=== PATIENT | male | born 1975 | race African-American/Black ===

== ENCOUNTER 2016-08-05 04:36 | Emergency (ER) | payer SELFPAY ==
[~2016-08-05] VITALS: Ht 172.7 cm; Wt 67.0 kg
[2016-08-05 04:39] VITALS: BP 145/83; PULSE 57; RESP 16; TEMP 98.7; O2SAT 100
[2016-08-05 05:16] VITALS: RESP 18; O2SAT 99
[2016-08-05] MEDS ORDERED: ONDANSETRON HCL 4 MG/2 ML VIAL ONE (05:29)
[2016-08-05 05:30] LABS: AUTOMATED NEUTROPHIL # 4.9 TH/MM3 (1.8-7.7); BASOPHIL % 0.6 % (0.0-2.0); EOSINOPHIL # 0.1 TH/MM3 (0-0.4); EOSINOPHIL % 1.4 % (0.0-4.0); HEMATOCRIT 38.4 % (39.0-51.0); HEMO FLAGS DIFF FINAL; LYMPH % 25.4 % (9.0-44.0); MEAN CELL VOLUME 93.5 FL (80.0-100.0); MEAN CORPUSCULAR HEMOGLOBIN 31.9 PG (27.0-34.0); MEAN CORPUSCULAR HGB CONC 34.1 % (32.0-36.0); MONO % 10.4 % (0.0-8.0); NEUT % 62.2 % (16.0-70.0); PLATELET COUNT 257 TH/MM3 (150-450); WHITE BLOOD COUNT 7.9 TH/MM3 (4.0-11.0)
[2016-08-05] MEDS ORDERED: ONDANSETRON HCL 4 MG/2 ML VIAL IV PUSH ONE (05:30)
[2016-08-05] MEDS ORDERED: MORPHINE SULFATE 4 MG/ML INJ IV PUSH ONE (05:30)
[2016-08-05 05:44] LABS: ANION GAP 9 MEQ/L (5-15); AST (GOT) 20 U/L (15-37); BICARBONATE 27.3 MEQ/L (21.0-32.0); BLOOD UREA NITROGEN 11 MG/DL (7-18); CHLORIDE 104 MEQ/L (98-107); GLOMERULAR FILTRATION RATE 115 ML/MIN (>89); POTASSIUM 3.9 MEQ/L (3.5-5.1); SODIUM (NA) 140 MEQ/L (136-145)
[2016-08-05 05:47] LABS: ALKALINE PHOSPHATASE 65 U/L (45-117); ALT (GPT) 20 U/L (12-78); TOTAL BILIRUBIN ADULT 0.4 MG/DL (0.2-1.0)
[2016-08-05] MEDS ORDERED: HYDROmorphone HCL PF 1 MG/ML VIAL IV PUSH ONE ×2 (06:00→06:45)
[2016-08-05] MEDS ORDERED: IOHEXOL 350 MG/ML 10 ML VIAL (for RAD DIAG) IV ONE (06:33)
--- NOTE | 2016-08-05 06:44 | RADRPT ---
EXAM DATE/TIME: 08/05/2016 06:16 [place] COMPARISON: No previous studies available for comparison. INDICATIONS : Swelling in scrotum. Evaluate hernia or abscess. IV CONTRAST: 100 cc Omnipaque 350 (iohexol) IV ORAL CONTRAST: No oral contrast ingested. RADIATION DOSE: 4.83 CTDIvol (mGy) MEDICAL HISTORY : None SURGICAL HISTORY : None. ENCOUNTER: Initial ACUITY: 1 week PAIN SCALE: 10/10 LOCATION: scrotum TECHNIQUE: Volumetric scanning of the abdomen and pelvis was performed. Using automated exposure control and ad justment of the mA and/or kV according to patient size, radiation dose was kept as low as reasonably achievable to obtain optimal diagnostic quality images. FINDINGS: LOWER LUNGS: The visualized lower lungs are clear. LIVER: There is a 1 cm lesion in the anterior midportion of the liver which may be a hemangioma. Definitive characterization with multiphase MRI would be suggested when clinically feasible. There is no evidenc e of biliary ductal dilatation. There is mild probable steatosis adjacent to the falciform ligament. SPLEEN: Normal size without lesion. PANCREAS: Within normal limits. KIDNEYS: Normal in size and shape. There is no mass, stone or hydronephrosis. ADRENAL GLANDS: Within normal limits. VASCULAR: There is no aortic aneurysm. BOWEL/MESENTERY: The stomach, small bowel, and colon demonstrate no acute abnormality. There is no free intraperitone al air or fluid. ABDOMINAL WALL: Within normal limits. RETROPERITONEUM: There is no lymphadenopathy. BLADDER: No wall thickening or mass. REPRODUCTIVE: Within normal limits. INGUINAL: There is a large right inguinal hernia containing the cecum. MUSCULOSKELETAL: Within normal limits for patient age. CONCLUSION: Large right inguinal hernia contains a portion of the cecum. Slightly greater than 1 cm nonspecific liver lesion. Further characterization with multiphase contras shira liver MRI suggested on an elective basis. Tye Gardner MD on August 05, 2016 at 6:39 Board Certified Radiologist. This report was verified electronically.
[2016-08-05 06:46] VITALS: BP 113/68; PULSE 91; RESP 18; O2SAT 100
[2016-08-05] MEDS ORDERED: SODIUM CHLOR 0.9% 1000 ML INJ 1,000 ML IV ONE ×2 (07:00)
--- NOTE | 2016-08-05 07:16 | PD ---
HPI Chief Complaint: Abdominal Pain Time Seen by Provider: 04:40 Travel History International Travel<30 days: No Contact w/Intl Traveler<30days: No Traveled to known affect area: No History of Present Illness HPI Patient 40-year-old male presents emergency primary for evaluation of abdominal pain and right groin swelling since lifting of heavy object yesterday. Patient states he is always had some swelling of his right scrotum but he got significant worse yesterday. 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 Patient states since then the swelling got worse and slowly the pain has gotten worse as well. Denies any fever states he had one episode of nausea productive of yellow emesis. Denies any blood in the emesis blood in the stool diarrhea constipation. Patient denies any dysuria. PFSH Past Medical History Medical History: Denies Significant Hx Past Surgical History Other Surgery: Yes (REMOVAL OF NASAL POLYPS) Social History Alcohol Use: Yes (OCC) Tobacco Use: Yes Substance Use: Yes (MARIJUANA) Allergies-Medications (Allergen,Severity, Reaction): Coded Allergies: No Known Allergies (Verified , 08/05/16) Reported Meds & Prescriptions Reported Meds & Active Scripts Active No Active Prescriptions or Reported Medications Review of Systems Except as stated in HPI: all other systems reviewed are Neg Physical Exam Narrative GENERAL: Well-developed well-nourished no apparent distress SKIN: Warm and dry. HEAD: Atraumatic. Normocephalic. EYES: Pupils equal and round. No scleral icterus. No injection or drainage. ENT: No nasal bleeding or discharge. Mucous membranes pink and moist. NECK: Trachea midline. No JVD. CARDIOVASCULAR: Regular rate and rhythm. No murmur appreciated. RESPIRATORY: No accessory muscle use. Clear to auscultation. Breath sounds equal bilaterally. GASTROINTESTINAL: Abdomen soft, non-tender, nondistended. Hepatic and splenic margins not palpable. Genitourinary: Penis circumcised, there is significant swelling and tenderness of the right scrotum. There is no overlying cellulitis or abscess. MUSCULOSKELETAL: No obvious deformities. No clubbing. No cyanosis. No edema. NEUROLOGICAL: Awake and alert. No obvious cranial nerve deficits. Motor grossly within normal limits. Normal speech. PSYCHIATRIC: Appropriate mood and affect; insight and judgment normal. Data Data Last Documented VS Vital Signs Date Time Temp Pulse Resp B/P Pulse Ox O2 Delivery O2 Flow Rate FiO2 3/4/17 06:46 91 18 113/68 100 Room Air 08/05/16 04:39 98.7 Orders Complete Blood Count With Diff (08/05/16 04:43) Comprehensive Metabolic Panel (08/05/16 04:43) Iv Access Insert/Monitor (08/05/16 04:43) Ecg Monitoring (08/05/16 04:43) Oximetry (08/05/16 04:43) Lipase (08/05/16 04:51) Morphine Inj (Morphine Inj) (08/05/16 05:30) Ondansetron Inj (Zofran Inj) (08/05/16 05:29) Ondansetron Inj (Zofran Inj) (08/05/16 05:30) Lactic Acid (08/05/16 05:47) Hydromorphone Pf Inj (Dilaudid Pf Inj) (08/05/16 06:00) Ct Abd/Pel W Iv Contrast(Rout) (08/05/16 ) Iohexol 350 Inj (Omnipaque 350 Inj) (08/05/16 06:33) Hydromorphone Pf Inj (Dilaudid Pf Inj) (08/05/16 06:45) Sodium Chlor 0.9% 1000 Ml Inj (Ns 1000 M (08/05/16 07:00) Sodium Chlor 0.9% 1000 Ml Inj (Ns 1000 M (08/05/16 07:00) Mandatory Outpatient Referral (08/05/16 07:40) Labs Laboratory Tests Test 08/05/16 08/05/16 04:51 05:55 White Blood Count 7.9 TH/MM3 Red Blood Count 4.10 MIL/MM3 Hemoglobin 13.1 GM/DL Hematocrit 38.4 % Mean Corpuscular Volume 93.5 FL Mean Corpuscular Hemoglobin 31.9 PG Mean Corpuscular Hemoglobin 34.1 % Concent Red Cell Distribution Width 13.0 % Platelet Count 257 TH/MM3 Mean Platelet Volume 9.1 FL Neutrophils (%) (Auto) 62.2 % Lymphocytes (%) (Auto) 25.4 % Monocytes (%) (Auto) 10.4 % Eosinophils (%) (Auto) 1.4 % Basophils (%) (Auto) 0.6 % Neutrophils # (Auto) 4.9 TH/MM3 Lymphocytes # (Auto) 2.0 TH/MM3 Monocytes # (Auto) 0.8 TH/MM3 Eosinophils # (Auto) 0.1 TH/MM3 Basophils # (Auto) 0.0 TH/MM3 CBC Comment DIFF FINAL Differential Comment Sodium Level 140 MEQ/L Potassium Level 3.9 MEQ/L Chloride Level 104 MEQ/L Carbon Dioxide Level 27.3 MEQ/L Anion Gap 9 MEQ/L Blood Urea Nitrogen 11 MG/DL Creatinine 0.89 MG/DL Estimat Glomerular Filtration 115 ML/MIN Rate Random Glucose 102 MG/DL Calcium Level 9.1 MG/DL Total Bilirubin 0.4 MG/DL Aspartate Amino Transf 20 U/L (AST/SGOT) Alanine Aminotransferase 20 U/L (ALT/SGPT) Alkaline Phosphatase 65 U/L Total Protein 7.5 GM/DL Albumin 3.9 GM/DL Lipase 100 U/L Lactic Acid Level 0.8 mmol/L MDM Medical Decision Making Medical Screen Exam Complete: Yes Emergency Medical Condition: Yes Differential Diagnosis Hernia, strangulated hernia, entrapped hernia, acute abdomen unlikely. Narrative Course Patient roomed in the emergency department, with some effort, 2 mg of Dilaudid plus morphine and significant patient's Ramon Syed and I were able to reduce the patient's hernia. Patient complete relief of his pain after reduce. He is tolerating by mouth and has no complaints. Last 24 hours Impressions Abdomen/Pelvis CT 08/05/16 0000 Signed Impressions: Service Date/Time: Friday, August 05, 2016 06:16 - CONCLUSION: Large right inguinal hernia contains a portion of the cecum. Slightly greater than 1 cm nonspecific liver lesion. Further characterization with multiphase contrasted liver MRI suggested on an elective basis. Tye Gardner MD I have paged Dr. Shi of discussed the patient as he has a large bowel containing hernia and likely to recur. Discussed with the patient importance of following up and he is agreeable. Discussed return to ED criteria. Diagnosis Primary Impression: Direct inguinal hernia Referrals: Boubacar Shi MD Scripts No Active Prescriptions or Reported Meds Disposition: 01 DISCHARGE HOME Condition: Stable Dipak Renteria MD Aug 05, 2016 07:16
== END 2016-08-05 08:49 | disposition home or self-care (01) ==
LOC: NEPE 04:36
DX: K40.90 Unilateral inguinal hernia, without obstruction or gangrene, not specified as recurrent (principal); F12.10 Cannabis abuse, uncomplicated; Z72.0 Tobacco use
CPT/HCPCS: 74177; 80053; 83605; 83690; 85025; 96361; 96374; 96375; 96376; 99284; J1170; J2270; J2405; J7030; Q9967

== ENCOUNTER → 2016-09-06 | Day surgery (SDC) | payer SELFPAY ==
[~2016-09-06] MED LIST: BACT800T5 PO; BUPIVACAINE/EPINEPHRINE 0.25% 50 ML VIAL ONE; CEPH500C PO; HYDR-3533 PO; IBUP800T23 PO; KETOROLAC TROMETHAMINE 30 MG/ML (IVP) VIAL IV PUSH ONE; LACTATED RINGER'S 1000 ML INJ 1,000 ML ONE; MIDAZOLAM HCL 2 MG/2 ML VIAL ONE; ONDANSETRON HCL 4 MG/2 ML VIAL IV PUSH ONE; PROPOFOL 200 MG/20 ML AMP IV ONE; ceFAZolin 2 GM PREMIX 50 ML ONE
--- NOTE | 2016-09-06 17:24 | TN ---
cc: DELFINA SHEPARD M.D. DATE OF SURGERY 09/06/2016 PREOPERATIVE DIAGNOSIS Right inguinal hernia. POSTOPERATIVE DIAGNOSES 1. Large chronic right indirect inguinal hernia. 2. Small spermatic cord lipoma. PROCEDURE Open repair right inguinal hernia with mesh. Excision small spermatic cord lipoma. SURGEON Dr. Delfina Shepard MELTER OPERATOR JIMENA Garcia ANESTHESIA General with laryngeal mask INDICATIONS This is a 41-year-old -[place] gentleman presented to the emergency department with a symptomatic right inguinal hernia. He has had it for many years. It has increased in size. He is desirous of repair. INTRAOPERATIVE FINDINGS Large chronic right indirect inguinal hernia sac with redundant sac excised and discarded. Small spermatic cord lipoma excised and discarded. ESTIMATED BLOOD LOSS Minimal. PROCEDURE DETAILS This procedure was assisted by my FREIGHT CAR REPAIRER. The skill set of the nurse practitioner was medically necessary to provide appropriate assistance in retraction and visualization of important anatomic structures and providing increased efficiency in the operating room. The surgical assistant certified was at the back table providing appropriate instrumentation while the nurse practitioner directly assisting me through the entirety of the case. DESCRIPTION OF PROCEDURE IN DETAIL The patient identified as Mian Pavon, taken to the operating room and placed in the supine position. Sequential compression devices were placed on bilateral lower extremities. Following induction of adequate general anesthesia with a laryngeal mask the right groin was prepped and draped in usual sterile fashion with Betadine. Time-out procedure was performed. Following completion of the time-out procedure to everyone's satisfaction within the room, the right groin proposed incision was made with a marking pen. Local anesthetic was infiltrated the right groin incision carried out with scalpel. Hemostasis was controlled with electrocautery. Dissection continued posteriorly through Boone fascia to the level of the external oblique fascia. More local anesthetic was placed beneath the external oblique fascial fibers and they were opened in their direction using a scalpel and Metzenbaum scissor. Underlying ilioinguinal and iliohypogastric nerves were identified and avoided. Spermatic cord and its contents were from surrounding tissues at the level of the pubic tubercle and isolated with a Linda drain. The anterior cremasteric fibers were divided with electrocautery and a chronic, large, thickened indirect inguinal hernia sac was reduced from surrounding cord structures. This took some time as there was significant scarring of the hernia sac to the surrounding structures, but they were carefully identified and relieved from the sac. The sac was then opened. There were no incarcerated contents in the sac and it was suture-ligated at its base with 2-0 Vicryl suture ligature. Redundant sac was amputated with electrocautery and discarded. Small spermatic cord lipoma was treated in a similar fashion though much more easily and the excess fatty tissue was excised after the base was suture ligated with a 2-0 Vicryl suture ligature. The inguinal floor was examined. There was no evidence of direct hernia or femoral hernia. Inguinal floor was reinforced with a piece of atrium ProLite mesh which was cut from a 3 x 6 inch piece to an appropriate size for the patient's anatomy. The mesh was held in position with interrupted 0 Ethibond sutures placed above and below the pubic tubercle and Donavan's ligament and the shelving edge of the inguinal ligament inferiorly and laterally into the internal oblique fascia superiorly and medially. Tails of the mesh were cut to allow for lateral slit which was placed around the spermatic cord and tacked underneath the external oblique fascia laterally. A single suture was placed to approximate the mesh lateral to the spermatic cord taking care not to strangle it. Wound was irrigated with saline. There was no evidence of bleeding. Remaining local anesthetic was placed within the operative field and the external oblique fascia was closed in a running fashion using the 2-0 Vicryl suture. Care was taken to avoid underlying ilioinguinal and iliohypogastric nerves. Boone fascia was approximated with interrupted 3-0 Vicryl sutures. Skin incisions were approximated with running 4-0 Monocryl subcuticular suture. Dressings were applied with Mastisol and one-half inch brown Steri-Strips, gauze and Tegaderm. The patient tolerated the procedure without apparent complication. Sponge, needle and instrument counts were correct at the end of the case. MD MEHRAN Mcdaniel/ALEJANDRA /3:38 PM /5:02 PM PHILIP
== END | disposition home or self-care (01) ==
LOC: ESDC 12:49
PROVIDERS: ATTEND Surgery Trauma Surgery
DX: K40.90 Unilateral inguinal hernia, without obstruction or gangrene, not specified as recurrent (principal); D17.6 Benign lipomatous neoplasm of spermatic cord
CPT/HCPCS: 00830; 49505; 55520; C1781; J0690; J1885; J2250; J2405; J3010; J7120

== ENCOUNTER 2016-09-15 08:20 | Emergency (ER) | payer SELFPAY ==
[~2016-09-15] VITALS: Ht 175.3 cm; Wt 68.0 kg
[2016-09-15 08:22] VITALS: BP 137/82; PULSE 70; RESP 20; TEMP 97.9; O2SAT 99
[2016-09-15] MEDS ORDERED: HYDROmorphone HCL PF 1 MG/ML VIAL IM ONE (09:45)
[2016-09-15] MEDS ORDERED: HYDROmorphone HCL PF 1 MG/ML VIAL IV PUSH ONE (10:00)
[2016-09-15] MEDS ORDERED: SODIUM CHLOR 0.9% 1000 ML INJ 1,000 ML IV ONE (10:00)
[2016-09-15] MEDS ORDERED: HYDR-3533 PO (10:03)
--- NOTE | 2016-09-15 10:03 | PD ---
HPI Chief Complaint: Pain: Acute or Chronic Time Seen by Provider: 09:30 Travel History International Travel<30 days: No Contact w/Intl Traveler<30days: No Traveled to known affect area: No History of Present Illness HPI This is a 41-year-old male who had an inguinal hernia repair a week and a half ago who presents to the emergency department with 3 days of increasing pain on his right abdomen, intermittent, worse when he stands up or stretches, starting at his inguinal hernia repair site and extending up to his right upper abdomen. Patient denies any fevers or chills. He says his bowels have been normal and he's been urinating normally. He did have one episode of vomiting yesterday but none today. He was supposed to follow-up with Dr. Shi yesterday in clinic but he missed his appointment. He had been taking Lortab but since has run out. 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 [facility] Past Medical History Medical History: Denies Significant Hx Tetanus Vaccination: < 5 Years Influenza Vaccination: No Past Surgical History Abdominal Surgery: Yes (HERNIA REPAIR) Other Surgery: Yes (REMOVAL OF NASAL POLYPS) Social History Alcohol Use: Yes (OCC) Tobacco Use: Yes (5-10 CIGARETTES/DAY) Substance Use: Yes (MARIJUANA) Allergies-Medications (Allergen,Severity, Reaction): Coded Allergies: No Known Allergies (Verified , 08/05/16) Reported Meds & Prescriptions Reported Meds & Active Scripts Active No Active Prescriptions or Reported Medications Review of Systems Except as stated in HPI: all other systems reviewed are Neg Physical Exam Narrative GENERAL:Well appearing, no acute distress SKIN: Well-healing incision over the right inguinal area with no fluctuance or purulent drainage HEAD: Atraumatic. Normocephalic. EYES: Pupils equal and round. No injection or drainage. ENT: Moist mucous membranes NECK: Trachea midline. CARDIOVASCULAR: Regular rate and rhythm. No murmur appreciated. RESPIRATORY: Clear to auscultation. Breath sounds equal bilaterally. GASTROINTESTINAL: Abdomen soft, tender to palpation in the right lower quadrant with no rebound or guarding. MUSCULOSKELETAL: No obvious deformities. NEUROLOGICAL: Awake and alert. No obvious cranial nerve deficits. Moving all extremities. PSYCHIATRIC: Appropriate mood and affect; insight and judgment normal. Data Data Last Documented VS Vital Signs Date Time Temp Pulse Resp B/P Pulse Ox O2 Delivery O2 Flow Rate FiO2 09/15/16 08:22 97.9 70 20 137/82 99 Room Air Orders Hydromorphone Pf Inj (Dilaudid Pf Inj) (09/15/16 09:45) Complete Blood Count With Diff (09/15/16 09:46) Comprehensive Metabolic Panel (09/15/16 09:46) ^ Insert Iv (09/15/16 09:46) Ct Abd/Pel W Iv Contrast(Rout) (09/15/16 ) Hydromorphone Pf Inj (Dilaudid Pf Inj) (09/15/16 10:00) Sodium Chlor 0.9% 1000 Ml Inj (Ns 1000 M (09/15/16 10:00) MDM Medical Decision Making Medical Screen Exam Complete: Yes Emergency Medical Condition: Yes Interpretation(s) Afebrile, no tachycardia, normotensive Differential Diagnosis Postoperative pain, bowel obstruction, bowel perforation, abscess Narrative Course This is a 41-year-old male who presents to the emergency department with discomfort in the right side associated with a right inguinal hernia repair that was performed a week and a half ago. Patient recently returned to work and has been on his feet more. I suspect this is normal postoperative pain. He is very well-appearing on exam, well-hydrated, with no bowel or bladder dysfunction and a fairly benign exam. I spoke to Dr. Shi who agreed to follow-up with the patient on Sunday in clinic. Patient will return if he develops fevers, increasing or worsening pain, or vomiting. Patient was discharged with a short course of Lortab and was instructed to perform light duty at work until he improves. Diagnosis Primary Impression: Postoperative pain Patient Instructions: General Instructions, Narcotic given in the ED Departure Forms: Work Release Special Instructions: Please have Mr. Pavon perform light duty at work and spend minimal time on his feet until he follows up with his surgeon on Sunday. Additional Instructions: If you develop severe or worsening abdominal pain, fever>100.4, persistent vomiting or inability to eat or drink return to the emergency department immediately. Follow up with Dr. Shi as scheduled. Med/Other Pt SpecificInfo: Prescription(s) given Scripts Hydrocodone-Acetaminophen (Lortab)5-325 Mg Tab1-2 Tab PO Q6H PRN (PAIN) #15 TAB Ref 0 Prov:Elana Jordan MD 09/15/16 Disposition: 01 DISCHARGE HOME Condition: Stable Elana Jordan MD Sep 15, 2016 10:03
[2016-09-15 10:23] VITALS: RESP 17
[2016-09-15 10:39] VITALS: BP 122/80; TEMP 97.8
== END 2016-09-15 10:39 | disposition home or self-care (01) ==
LOC: NEPD 08:20
DX: G89.18 Other acute postprocedural pain (principal); K40.90 Unilateral inguinal hernia, without obstruction or gangrene, not specified as recurrent; F17.210 Nicotine dependence, cigarettes, uncomplicated; R11.10 Vomiting, unspecified
CPT/HCPCS: 96361; 96374; 99284; J1170; J7030

== ENCOUNTER 2016-10-27 20:38 | Emergency (ER) | payer SELFPAY ==
[~2016-10-27 20:38] MED LIST changes: -BACT800T5 PO; -BUPIVACAINE/EPINEPHRINE 0.25% 50 ML VIAL ONE; -CEPH500C PO; -IBUP800T23 PO; -KETOROLAC TROMETHAMINE 30 MG/ML (IVP) VIAL IV PUSH ONE; -LACTATED RINGER'S 1000 ML INJ 1,000 ML ONE; -MIDAZOLAM HCL 2 MG/2 ML VIAL ONE; -ONDANSETRON HCL 4 MG/2 ML VIAL IV PUSH ONE; -PROPOFOL 200 MG/20 ML AMP IV ONE; -ceFAZolin 2 GM PREMIX 50 ML ONE
[2016-10-27 20:39] VITALS: BP 109/67; PULSE 92; RESP 15; TEMP 98.8; O2SAT 99
[2016-10-27] MEDS ORDERED: BACT800T5 PO (21:40)
[2016-10-27] MEDS ORDERED: IBUP800T23 PO (21:40)
[2016-10-27] MEDS ORDERED: CEPH500C PO (21:40)
--- NOTE | 2016-10-27 21:41 | PD ---
HPI Chief Complaint: Skin Problem Time Seen by Provider: 21:36 Travel History International Travel<30 days: No Contact w/Intl Traveler<30days: No Traveled to known affect area: No History of Present Illness HPI 41-year-old male presents to the emergency department for evaluation of abscess to his right dorsal forearm has been ongoing for 1 week. 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 He denies any history of IV drug use. He denies any fevers or chills. He has no chronic medical problems and takes no prescribed medications. Patient denies history of abscesses. He has no other complaints at this time. No abdominal pain. No chest pain. No shortness of breath. No nausea or vomiting. PFSH Past Medical History Medical History: Denies Significant Hx Past Surgical History Abdominal Surgery: Yes (HERNIA REPAIR) Other Surgery: Yes (REMOVAL OF NASAL POLYPS) Social History Alcohol Use: Yes (OCC) Tobacco Use: Yes (5-10 CIGARETTES/DAY) Substance Use: Yes (MARIJUANA) Allergies-Medications (Allergen,Severity, Reaction): Coded Allergies: No Known Allergies (Verified , 10/27/16) Reported Meds & Prescriptions Reported Meds & Active Scripts Active Ibuprofen 800 Mg Tab 800 Mg PO TID PRN Cephalexin 500 Mg Cap 500 Mg PO Q6H 10 Days Bactrim DS (Sulfamethoxazole-Trimethoprim) 800-160 Mg Tab 1 Tab PO BID Review of Systems Except as stated in HPI: all other systems reviewed are Neg Physical Exam Narrative GENERAL: Well-nourished, well-developed male patient, ambulatory. Afebrile. SKIN: Focused skin assessment warm/dry. Patient has an approximately 2 cm raised fluctuant abscess to the right dorsal forearm. No current drainage. No surrounding erythema. HEAD: Normocephalic. Atraumatic. EYES: No scleral icterus. No injection or drainage. NECK: Supple, trachea midline. No JVD or lymphadenopathy. CARDIOVASCULAR: Regular rate and rhythm without murmurs, gallops, or rubs. Right radial pulse 2+. RESPIRATORY: Breath sounds equal bilaterally. No accessory muscle use. Lungs sounds are clear to auscultation. GASTROINTESTINAL: Abdomen soft, non-tender, nondistended. MUSCULOSKELETAL: No cyanosis, or edema. Patient has full range of motion of right elbow and right wrist without pain or stiffness. BACK: Nontender without obvious deformity. No CVA tenderness. Data Data Last Documented VS Vital Signs Date Time Temp Pulse Resp B/P Pulse Ox O2 Delivery O2 Flow Rate FiO2 10/27/16 20:39 98.8 92 15 109/67 99 Room Air Orders Wound Culture And Gram Stain (10/27/16 21:35) Lidocai-Epi 1%-1:100,000 Inj (Xylocaine- (10/27/16 21:45) Sulfamet-Trimeth Ds 800-160 Mg (Bactrim (10/27/16 21:45) Cephalexin (Keflex) (10/27/16 21:45) MDM Medical Decision Making Medical Screen Exam Complete: Yes Emergency Medical Condition: Yes Medical Record Reviewed: Yes Differential Diagnosis Abscess versus cellulitis versus cyst Narrative Course 41-year-old male presents to the emergency department for evaluation of an abscess to his right dorsal forearm for 1 week. Patient gives verbal consent for incision and drainage. Patient is given first dose of Bactrim and Keflex in the emergency department. He'll be discharged prescription for Bactrim and Keflex. He verbalizes agreement and understanding. Patient is given wound care instructions. Procedures Procedure Narrative INCISION AND DRAINAGE OF ABSCESS: The area was prepped and was sterilely draped. A subcutaneous wheal of 1% Xylocaine with epinephrine with a total number 3 mL was used to anesthetize the area. The area was properly anesthetized. A number 11 scalpel was used to make a 1 -cm incision across the area of the abscess. Cultures were obtained. The abscess was drained an irrigated with normal saline. Quarter inch iodoform packing was placed in the wound. Sterile dressing applied. Patient advised to have packing removed in two days. Diagnosis Primary Impression: Abscess of forearm, right Referrals: Primary Care Physician call for appointment Patient Instructions: Abscess (ED), Abscess Incision and Drainage (ED), General Instructions Additional Instructions: Clean twice daily with soap and water and apply [id number] antibiotic ointment. Take antibiotics as directed until gone. Keflex is $4 at [facility] and Bactrim is free of [facility]. Keep clean and dry. Packing removal and 2 days. Follow-up with your primary care physician. Return to the emergency department for any acute worsening of symptoms. Med/Other Pt SpecificInfo: Prescription(s) given Scripts Ibuprofen 800 Mg [id number] Mg PO TID PRN (PAIN SCALE 1 TO 10) #21 TAB Ref 0 Prov:Nelda Castro 10/27/16 Cephalexin 500 Mg Own591 Mg PO Q6H 10 Days Ref 0 Prov:Nelda Castro 10/27/16 Sulfamethoxazole-Trimethoprim (Bactrim DS)800-160 Mg Tab1 Tab PO BID #20 TAB Ref 0 Prov:Nelda Castro 10/27/16 Disposition: 01 DISCHARGE HOME Condition: Stable Nelda Castro October 27, 2016 21:41
[2016-10-27] MEDS ORDERED: LIDOCAINE 1%/EPINEPHrine 1:100,000 SOLN 20 ML VIAL INFIL ONE (21:45)
[2016-10-27] MEDS ORDERED: CEPHALEXIN MONOHYDRATE 500 MG CAP PO ONE (21:45)
[2016-10-27] MEDS ORDERED: SULFAMETHOXAZOLE-TRIMETHOPRIM DS 800-160 MG TAB PO ONE (21:45)
== END 2016-10-27 22:03 | disposition home or self-care (01) ==
LOC: NEPD 20:38
DX: L02.413 Cutaneous abscess of right upper limb (principal); B95.62 Methicillin resistant Staphylococcus aureus infection as the cause of diseases classified elsewhere; F17.210 Nicotine dependence, cigarettes, uncomplicated
CPT/HCPCS: 10061; 86403; 87070; 87186; 87205